=== PATIENT | female | born 1970 | race Caucasian/White ===

== ENCOUNTER → 2021-05-02 | Outpatient (CLI) | payer OTHER, MEDICAID ==
[~2021-05-02] MED LIST: DULOXETINE HCL60 MG PO; LEVO-T75 MCG PO; METHOCARBAMOL750 MG PO; NEURONTIN 300M300 M2 PO; OMEPRAZOLE40 MG PO; ONDANSETRON HCL4 M2 PO; PERCOCET 10-321 EAC1 PO; PROTONIX40 M2 PO; TRAZODONE HCL100 MG PO; XARELTO10 MG PO
[2021-05-02 10:43] LABS: URINE BILIRUBIN NEGATIVE (Negative); URINE BLOOD NEGATIVE (Negative); URINE CLARITY CLEAR; URINE COLOR YELLOW; URINE GLUCOSE-RANDOM NEGATIVE (Negative); URINE KETONES NEGATIVE (Negative); URINE LEUKOCYTES-REFLEX 1+ (Negative); URINE NITRITE-REFLEX NEGATIVE (Negative); URINE PROTEIN NEGATIVE (Negative); URINE SPECIFIC GRAVITY 1.025 (1.005-1.030); URINE UROBILINOGEN 0.2 E.U./dl (0.2-1.0)
[2021-05-02 10:44] LABS: ABSOLUTE BASOPHILS 0.1 thou/uL (0.0-0.2); ABSOLUTE EOSINOPHILS 0.2 thou/uL (0.0-0.7); ABSOLUTE LYMPHOCYTES 1.4 thou/uL (0.8-5.3); ABSOLUTE MONOCYTES 0.3 thou/uL (0.0-1.2); ABSOLUTE NEUTROPHILS 3.4 thou/uL (1.6-8.1); BASOPHILS 1.2 %; EOSINOPHILS 4.6 %; HEMATOCRIT 39.5 % (37.0-47.0); HEMOGLOBIN 12.8 gm/dL (12.0-15.0); LYMPHOCYTES 25.9 %; MCH 26.5 pg (26.0-34.0); MCHC 32.4 g/dL (28.0-37.0); MCV 81.8 fL (80.0-100.0); MONOCYTES 5.1 %; MPV 8.4 fl. (7.2-11.1); NUCLEATED RBCS 0 /100WBC; PLATELET COUNT* 230 thou/uL (150-400); POLYS 63.2 %; RBC 4.83 mil/uL (4.20-5.00); RDW-CV 21.9 % (10.5-14.5); WBC 5.4 thou/uL (4.0-11.0)
[2021-05-02 10:51] LABS: SQUAMOUS 4-10 Moderate /LPF (0-3)
[2021-05-02 10:52] LABS: BACTERIA-REFLEX 1-9 Few /HPF (None Seen); CASTS None Seen /LPF (None Seen); CRYSTALS None Seen /LPF (None Seen); MUCUS 0-3 Light strn/LPF (None Seen); URINE RBC 0-2 Rare /HPF (0-2); URINE WBC-REFLEX 0-5 Rare /HPF (0-5)
[2021-05-02 10:54] LABS: PROTIME 10.4 Seconds (9.20-11.50)
[2021-05-02 10:56] LABS: ALBUMIN 3.1 g/dL (3.4-5.0); CALCIUM 8.5 mg/dL (8.5-10.1); CREATININE 0.7 mg/dL (0.6-1.3); POTASSIUM 4.1 mmol/L (3.5-5.1); TOTAL BILIRUBIN 0.4 mg/dL (<0.1-1.0); TOTAL PROTEIN 7.5 g/dL (6.4-8.2)
== END | disposition home or self-care (01) ==
LOC: M.LAB 10:40
PROVIDERS: ATTEND Orthopaedic Surgery
DX: Z01.812 Encounter for preprocedural laboratory examination (principal); M16.12 Unilateral primary osteoarthritis, left hip; Z98.890 Other specified postprocedural states; Z79.899 Other long term (current) drug therapy; Z20.822 Contact with and (suspected) exposure to COVID-19; Z88.8 Allergy status to other drugs, medicaments and biological substances; Z88.2 Allergy status to sulfonamides

== ENCOUNTER 2021-05-09 07:17 | Inpatient (IN) | payer OTHER, MEDICAID ==
[~2021-05-09] VITALS: Ht 162.6 cm; Wt 87.1 kg
[~2021-05-09 07:17] MED LIST changes: -XARELTO10 MG PO
[2021-05-09 08:26] VITALS: BP 95/59
[2021-05-09 14:21] VITALS: BP 139/64
[2021-05-09 20:18] VITALS: BP 110/62
[2021-05-10 00:28] VITALS: BP 134/103
[2021-05-10 04:58] VITALS: BP 130/86
[2021-05-10 06:34] LABS: HEMOGLOBIN 10.5 gm/dL (12.0-15.0); MCH 26.5 pg (26.0-34.0); MCHC 32.8 g/dL (28.0-37.0); MCV 80.9 fL (80.0-100.0); MPV 8.1 fl. (7.2-11.1); RBC 3.96 mil/uL (4.20-5.00); WBC 8.7 thou/uL (4.0-11.0)
[2021-05-10 06:45] LABS: CALCIUM 7.6 mg/dL (8.5-10.1); CREATININE 0.9 mg/dL (0.6-1.3); POTASSIUM 3.8 mmol/L (3.5-5.1)
[2021-05-10 07:50] VITALS: BP 128/71
[2021-05-10 16:10] VITALS: BP 97/48
[2021-05-10 20:00] VITALS: BP 102/60
[2021-05-10 23:40] VITALS: BP 115/64
[2021-05-11 04:00] VITALS: BP 105/55
[2021-05-11 05:07] LABS: HEMATOCRIT 31.7 % (37.0-47.0); HEMOGLOBIN 10.3 gm/dL (12.0-15.0)
[2021-05-11 08:25] VITALS: BP 115/64
[2021-05-11] MEDS ORDERED: XARELTO10 MG PO (12:03)
[2021-05-11 16:53] VITALS: BP 110/52
[2021-05-11 21:00] VITALS: BP 122/70
--- NOTE | 2021-05-11 22:27 | OP ---
[facility] [address] [place] [address] OPERATIVE REPORT Name: GERMAN MAYBERRY Room: [address] M.R.#: [id number] Admission: 05/09/21 Attend Phys: Megan Glez Discharge: Date of : 70 Report #: [id number] THIS REPORT FOR: cc: DAKOTA GARSIA MD, HEATHER L. MD Greiner, Robert F. II DO ~ DATE OF SURGERY: 05/09/2021 PREOPERATIVE DIAGNOSIS: Left hip osteoarthritis. POSTOPERATIVE DIAGNOSIS: Left hip osteoarthritis. PROCEDURE: Left total hip arthroplasty. SURGEON: Jimbo Quinonez II, DO NETWORK SUPPORT MANAGER: None. ANESTHESIA: General endotracheal. ESTIMATED BLOOD LOSS: 400 mL. ANTIBIOTICS: Ancef preoperatively. DRAINS: Medium Hemovac. COMPLICATIONS: None. INDICATIONS: The patient stable to recovery room. IMPLANTS: Listed in operative record and progress note. BRIEF HISTORY: The patient was seen in the preop area. Preoperative H and P was performed, site was marked, questions were answered. Risks and benefits were discussed with the patient in detail about the surgery. The patient wished to proceed assuming all risks. DESCRIPTION OF PROCEDURE: The patient was taken to the operative suite, placed supine on the operating table and given appropriate anesthesia. The patient's operative hip was placed on the [place] table leg jang and sterilely prepped and draped in the supine position. Surgery began by a longitudinal incision over the anterior portion of the hip. This was carried down through the subcutaneous tissues. A small zaire was made in the tensor fascia. It was then split along its fibers and retracted laterally. An H capsulotomy was then performed and careful hemostasis was maintained with electrocautery and Aquamantys. The head and neck cutting alignment guide was then [place] [address] OPERATIVE REPORT Name: GERMAN MAYBERRY Room: [address] IN [facility].#: [id number] Admission: 05/09/21 Attend Phys: Megan Glez Discharge: Date of : 70 Report #: [id number] Appropriate cut was made to the head and neck and this was removed. Attention was then turned to the acetabulum. Excess labrum was removed. It was then reamed in sequential fashion up to the appropriate size. This showed excellent bleeding bone and excellent position on fluoroscopic guidance. The acetabular cup was then malleted into position and secured with cancellous screws. The metal liner was then applied. The patient's leg was then rotated and extended on the [place] table to expose the femur. It was then broached in sequential fashion up to the appropriate size. Appropriate neck was then trialled with appropriate head length and shown to have excellent fit and fill and excellent stability of the hip through all range of motion. These trials were removed. The final stem was then malleted into position and the final head was then malleted in position. It was reduced in appropriate fashion, checked with the C-arm for appropriate leg length, showed to have excellent leg length throughout the exam without evidence of dislocation upon range of motion and shuck testing. Wound was then copiously irrigated. Hemostasis was maintained with electrocautery and Aquamantys. The pain cocktail was injected. The drain was activated. The H capsulotomy was then closed utilizing #1 Vicryl in a [id number]. The tensor fascia was closed with 1 Vicryl in a running fashion. Skin was closed with 2-0 Vicryl and a running 3-0 Monocryl with Dermabond. A sterile dressing applied. The patient was transported to recovery room in stable condition. COUNTS: Correct. <ELECTRONICALLY SIGNED> By: Jimbo Quinonez II, DO 05/11/217 20 2144Rsavage Quinonez II, DO /nt
[2021-05-12 07:30] VITALS: BP 101/56
[2021-05-12 15:29] VITALS: BP 115/77
[2021-05-12 20:10] VITALS: BP 92/44
[2021-05-13 03:09] VITALS: BP 133/67
[2021-05-13 16:00] VITALS: BP 112/55
[2021-05-13 20:25] VITALS: BP 100/54
[2021-05-14 08:15] VITALS: BP 109/62
[2021-05-14 16:00] VITALS: BP 104/57
[2021-05-14 20:05] VITALS: BP 107/60
[2021-05-15 08:23] VITALS: BP 109/60
[2021-05-15 13:27] LABS: ABSOLUTE EOSINOPHILS 0.5 thou/uL (0.0-0.7); ABSOLUTE LYMPHOCYTES 1.4 thou/uL (0.8-5.3); ABSOLUTE MONOCYTES 0.3 thou/uL (0.0-1.2); ABSOLUTE NEUTROPHILS 2.6 thou/uL (1.6-8.1); BASOPHILS 0.9 %; EOSINOPHILS 9.5 %; HEMATOCRIT 30.6 % (37.0-47.0); HEMOGLOBIN 10.1 gm/dL (12.0-15.0); LYMPHOCYTES 28.8 %; MCH 26.8 pg (26.0-34.0); MCHC 32.9 g/dL (28.0-37.0); MCV 81.6 fL (80.0-100.0); MONOCYTES 5.7 %; MPV 7.7 fl. (7.2-11.1); NUCLEATED RBCS 0 /100WBC; PLATELET COUNT* 284 thou/uL (150-400); POLYS 55.1 %; RBC 3.75 mil/uL (4.20-5.00); RDW-CV 20.5 % (10.5-14.5); WBC 4.8 thou/uL (4.0-11.0)
[2021-05-15 13:53] LABS: ANISOCYTOSIS 2+; PLATELET ESTIMATE ADEQUATE
[2021-05-15 15:46] VITALS: BP 106/57
[2021-05-15 19:45] VITALS: BP 128/65
[2021-05-16 09:51] VITALS: BP 117/62
[2021-05-16 12:13] VITALS: BP 154/52
[2021-05-16 15:46] VITALS: BP 98/41
[2021-05-16 19:37] VITALS: BP 122/86
[2021-05-17 07:25] VITALS: BP 117/59
[2021-05-17 13:07] VITALS: BP 117/59
[2021-05-17 14:15] VITALS: BP 117/59
[2021-05-17 16:41] VITALS: BP 112/61
== END 2021-05-17 17:40 | disposition home health service (06) | DRG 470 ==
LOC: M.TBA 07:17 → M.3W 07:17 → M.ORTHSURG 10:40 → M.3W 14:01
PROVIDERS: Internal Medicine; Orthopaedic Surgery; ADMIT Internal Medicine; ATTEND Internal Medicine
PROC: 0SRB03A Replacement of Left Hip Joint with Ceramic Synthetic Substitute, Uncemented, Open Approach (ICD-10-PCS; principal; 2021-05-09)
DX: M16.12 Unilateral primary osteoarthritis, left hip (principal); E03.9 Hypothyroidism, unspecified; K21.9 Gastro-esophageal reflux disease without esophagitis; G62.9 Polyneuropathy, unspecified; G89.29 Other chronic pain; Z87.891 Personal history of nicotine dependence

== ENCOUNTER → 2021-08-30 | Day surgery (SDC) | payer OTHER, MEDICAID ==
[~2021-08-30] MED LIST changes: +BUSPIRONE HCL10 MG PO; +COLACE100 MG PO; +MACROBID 100 M100 MG PO; +NORCO 10-325 T1 EACH PO; +XARELTO10 MG PO
--- NOTE | 2021-09-02 16:41 | OP ---
[address] [address] OPERATIVE REPORT Name: GERMAN MAYBERRY Room: [facility]#: [id number] Admission: 08/30/21 Attend Phys: Jimbo Quinonez II Discharge: Date of : 70 Report #: [id number] THIS REPORT FOR: cc: DAKOTA GARSIA MD, HEATHER L. MD Greiner, Robert F. II DO ~ DATE OF SURGERY: 08/30/2021 PREOPERATIVE DIAGNOSIS: Left knee medial meniscus tear. POSTOPERATIVE DIAGNOSES: 1. Left knee meniscus tear. 2. Left lateral meniscus tear. 3. Grade III chondromalacia patellofemoral groove. PROCEDURES PERFORMED: 1. Left knee arthroscopic surgery with partial medial and lateral meniscectomy. 2. Abrasion chondroplasty of patellofemoral groove down to bleeding bone. SURGEON: Jimbo Quinonez II, D.O. CLAY ARTISAN: JOHN Mahmood. ANESTHESIA: Per operative record. ESTIMATED BLOOD LOSS: Minimal. ANTIBIOTICS: Per operative record. DRAINS: None. COMPLICATIONS: None. CONDITION: The patient stable to recovery room. DESCRIPTION OF PROCEDURE: The patient was taken to operative suite, placed supine on the table, given appropriate anesthesia. The patient's left knee was sterilely prepped and draped in a well-padded knee arthroscopic jang. Surgery began by midline portal incision. The arthroscope was advanced in the joint. There was shown to be a medial meniscus tear of the posterior horn extending around to the medial margin the anterior portal. Baskets and shaver were utilized to resect the torn flap along the medial meniscus and then smoothed with Coblation wand. Lateral meniscus probed, shown to have a tear to the lateral margin, continued on to the anterior horn. This was debrided utilizing a shaver and basket back to stable margins. There was a grade III chondromalacia in patellofemoral groove. Utilizing shaver, [place] [address] OPERATIVE REPORT Name: GERMAN MAYBERRY Room: [facility]#: [id number] Admission: 08/30/21 Attend Phys: Jimbo Quinonez II Discharge: Date of : 70 Report #: [id number] chondroplasty was performed down to bleeding bone and smoothed with Coblation wand. ACL and PCL appeared intact throughout the procedure. Medial and lateral collateral ligaments appeared intact throughout the procedure. Final irrigation of the knee was then performed. The knee was drained of its fluid, closed with 4-0 nylon in similar fashion. Dermabond dressing applied. The patient transported to recovery in stable condition. Counts were correct throughout the procedure <ELECTRONICALLY SIGNED> By: Jimbo Quinonez II, DO 09/02/21 1641 21 2224Robert Joe Quinonez II, DO /nt
== END | disposition home or self-care (01) ==
LOC: M.SUR 06:40
PROVIDERS: ATTEND Orthopaedic Surgery
DX: S83.242A Other tear of medial meniscus, current injury, left knee, initial encounter (principal); S83.282A Other tear of lateral meniscus, current injury, left knee, initial encounter; M22.42 Chondromalacia patellae, left knee; M25.462 Effusion, left knee; M25.562 Pain in left knee; Z98.890 Other specified postprocedural states; Z79.899 Other long term (current) drug therapy; Z20.822 Contact with and (suspected) exposure to COVID-19; Z88.8 Allergy status to other drugs, medicaments and biological substances; Z88.2 Allergy status to sulfonamides; X58.XXXA Exposure to other specified factors, initial encounter; Y93.89 Activity, other specified; Y92.89 Other specified places as the place of occurrence of the external cause; Y99.8 Other external cause status